=== PATIENT | male | born 1945 | race African-American/Black ===

== ENCOUNTER 2016-10-12 08:56 | Emergency (ER) | payer OTHER ==
[~2016-10-12] VITALS: Ht 175.3 cm; Wt 96.6 kg
[2016-10-12] MEDS ORDERED: SODIUM CHLORIDE 0.9% 1,000 ML IV ONE (09:14)
[2016-10-12] MEDS ORDERED: MORPHINE SULFATE 4 MG/ML SYRG IV ONE (09:45)
[2016-10-12] MEDS ORDERED: ONDANSETRON HCL 4 MG/2 ML VIAL IV ONE (09:45)
[2016-10-12 10:16] LABS: Basophils # (auto) 0 uL; Basophils % (auto) 0.4 % (0.0-2.0); Eosinophils # (auto) 0 uL; Eosinophils % (auto) 0.4 % (0.0-7.0); Hematocrit 50.3 % (41.0-53.0); Hemoglobin 16.8 g/dL (13.5-17.5); Lymphocytes # (auto) 1.4 uL; Lymphocytes % (auto) 21.8 % (10.0-50.0); Mean Corpuscular Hemoglobin 30.1 pg (28.0-32.0); Mean Corpuscular Hgb Conc. 33.4 g/dL (32.0-36.0); Mean Corpuscular Volume 90.3 fL (80.0-100.0); Mean Platelet Volume 8.3 fL (7.4-10.4); Monocytes # (auto) 0.5 uL; Monocytes % (auto) 7.6 % (0.0-12.0); Neutrophils # (auto) 4.4 uL; Neutrophils % (auto) 69.8 % (37.0-80.0); Platelet Count (auto) 235 10^3/uL (140-450); Red Cell Distribution Width 13.3 % (11.6-16.0); White Blood Cell 6.3 10^3/uL (4.4-10.8)
[2016-10-12 10:29] LABS: Albumin 3.5 g/dL (3.4-5.0); Alkaline Phosphatase 81 U/L (45-117); Amylase 67 U/L (25-115); Anion Gap 13 (5-15); Aspartate Aminotransferase 17 U/L (15-37); BUN/Creatinine Ratio 10.9; Bilirubin, Total 0.8 mg/dL (0.2-1.0); Blood Urea Nitrogen 12 mg/dL (7-18); Calcium 8.4 mg/dL (8.5-10.1); Carbon Dioxide 22 mmol/L (21-32); Chloride 108 mmol/L (98-107); GFR African American 85 mL/min; GFR Non-African American 70 mL/min; Glucose 108 mg/dL (74-106); Potassium 3.5 mmol/L (3.5-5.1); Sodium 143 mmol/L (136-145); Total Protein 7.7 g/dL (6.4-8.2)
[2016-10-12 10:42] LABS: Partial Thromboplastin Time 27.2 sec (22.64-33.71); Prothrombin Time 12.1 sec (9.37-12.3)
[2016-10-12 10:43] LABS: INR 1.17 (0.9-1.15)
[2016-10-12 10:45] LABS: B-Type Natriuretic Peptide 41.59 pg/mL (0-100)
[2016-10-12 10:56] LABS: Temperature: 22.9 C (20.0-25.0)
[2016-10-12 11:19] VITALS: BP 127/57
== END 2016-10-12 13:28 | disposition home or self-care (01) ==
LOC: ER 08:56
DX: K29.70 Gastritis, unspecified, without bleeding (principal); F17.210 Nicotine dependence, cigarettes, uncomplicated; R11.2 Nausea with vomiting, unspecified; R06.02 Shortness of breath
CPT/HCPCS: 36415; 71010; 80053; 82150; 83690; 83880; 84484; 85025; 85610; 85730; 93005; 96361; 96374; 96375; 99285; J2270; J2405; J7030

== ENCOUNTER 2020-08-19 22:46 | Emergency (ER) | payer OTHER | END 2020-08-19 23:02 | LOC: ER 22:46 → EDBD 22:46 → ER 23:02 | DX: I46.9 Cardiac arrest, cause unspecified (principal) | CPT/HCPCS: 92950 ==